=== PATIENT | female | born 2000 | race Caucasian/White ===

== ENCOUNTER 2018-11-07 11:42 | Outpatient (CLI) | payer OTHER ==
--- NOTE | 2018-11-07 12:02 | RAD ---
EXAM: Chest PA and lateral: HISTORY: Reaction to TB skin test COMPARISON: 10/02/2011 FINDINGS: Lung butler are clear. Vascular markings are normal. Heart and mediastinum appear unremarkable. Vascularity is normal. Osseous structures are unremarkable. IMPRESSION: Unremarkable chest No evidence of primary or secondary TB
== END 2018-11-07 11:43 | disposition home or self-care (01) ==
LOC: BICRAD 11:42
PROVIDERS: ATTEND Specialist
DX: R76.11 Nonspecific reaction to tuberculin skin test without active tuberculosis (principal)
CPT/HCPCS: 71046

== ENCOUNTER 2018-12-02 10:07 | Outpatient (CLI) | payer OTHER ==
--- NOTE | 2018-12-02 11:40 | RAD ---
SINGLE VIEW OF THE PELVIS: History: Low back pain, pelvic pain. FINDINGS: Single view of the pelvis shows no evidence of acute fracture or dislocation. No degenerative changes are seen in either hip. IMPRESSION: Unremarkable exam. POS: [facility]
--- NOTE | 2018-12-02 11:43 | RAD ---
THREE VIEWS SACRUM/COCCYX: History: Sacral/coccygeal pain. Pain in the right leg. FINDINGS: Three views of the sacrum/coccyx shows no evidence of sacral or coccygeal fracture. The sacral ala ar e symmetric. The sacral iliac joints and pubic symphysis are unremarkable. IMPRESSION: Unremarkable exam. POS: [facility]
--- NOTE | 2018-12-02 12:47 | RAD ---
TWO VIEWS OF THE LUMBAR SPINE 12/02/18 HISTORY: Low back pain. FINDINGS: There is a moderate degree of focal levoscoliosis at the thoracolumbar junction. Five lumbar type bjorn tebral bodies are present with intact pedicles on frontal imaging. Lateral imaging demonstrates margarette l vertebral body height with no anterolisthesis or retrolisthesis seen. There is mild degenerative change at L2-3 with disc space narrowing and osteophyte formation. IMPRESSION: Scoliotic curvature of the thoracolumbar junction as detailed above. POS: [facility]
== END 2018-12-02 10:08 | disposition home or self-care (01) ==
LOC: BICRAD 10:07
PROVIDERS: ATTEND Specialist
DX: M54.5 Low back pain (principal); M41.9 Scoliosis, unspecified
CPT/HCPCS: 72100; 72170; 72220

== ENCOUNTER 2018-12-23 10:24 | Outpatient (CLI) | payer OTHER ==
--- NOTE | 2018-12-23 12:18 | MRI ---
LUMBAR SPINE MRI WITHOUT IV CONTRAST: Date: 12/23/18 HISTORY: Low back pain and right buttock pain for several weeks. FINDINGS: Multiplanar, multisequence MRI examination of the lumbar spine is performed. There is some generalized disc desiccation changes, and ligament and facet hypertrophic changes. L1-L2: Mild disc space narrowing without associated stenosis. L2-L3: Disc space narrowing with a small Schmorl's node with minimal adjacent marrow edema. Mild loan tral canal and lateral recess stenosis without significant foraminal stenosis. L3-L4: Very slight thinning of the lateral recesses without central canal stenosis. L4-L5: Very mild lateral recess stenosis and mild bilateral foraminal stenosis. L5-S1: Unremarkable. IMPRESSION: Generalized disc desiccation changes and degenerative changes. Variable severity, mostly mild, latera l recess and foraminal stenosis at multiple levels. Other findings as above. POS: [facility]
== END 2018-12-23 10:25 | disposition home or self-care (01) ==
LOC: BICMRI 10:24
PROVIDERS: ATTEND Specialist
DX: M54.5 Low back pain (principal); M41.9 Scoliosis, unspecified; M46.96 Unspecified inflammatory spondylopathy, lumbar region; M51.26 Other intervertebral disc displacement, lumbar region; M47.816 Spondylosis without myelopathy or radiculopathy, lumbar region; M48.061 Spinal stenosis, lumbar region without neurogenic claudication; R60.0 Localized edema
CPT/HCPCS: 72148

== ENCOUNTER 2021-03-07 07:56 | Outpatient (CLI) | payer OTHER ==
[2021-03-07] MEDS ORDERED: Iopamidol-370 76% 500 ML 1 ML ONE (08:54)
== END 2021-03-07 07:57 | disposition home or self-care (01) ==
LOC: BICCT 07:56
PROVIDERS: ATTEND Physician Assistant Medical
DX: R10.12 Left upper quadrant pain (principal); K90.0 Celiac disease; R74.01 Elevation of levels of liver transaminase levels; R10.33 Periumbilical pain; R11.0 Nausea
CPT/HCPCS: 74177; Q9967

== ENCOUNTER 2022-10-09 08:27 | Outpatient (CLI) | payer OTHER ==
[2022-10-09] MEDS ORDERED: Iopamidol 370 76% 100 ML VIAL ONE (09:45)
== END 2022-10-09 08:28 | disposition home or self-care (01) ==
LOC: BICCT 08:27
PROVIDERS: ATTEND Specialist
DX: Q64.4 Malformation of urachus (principal)
CPT/HCPCS: 74177; Q9967